=== PATIENT | female | born 1970 | race Caucasian/White ===

== ENCOUNTER 2018-08-29 07:58 | Observation (INO) ==
[2018-08-29 08:50] LABS: Basophils # 0.1 K/mcL (0.0-0.2); Basophils % 0.8 %; Eosinophils # 0.2 K/mcL (0.0-0.6); Eosinophils % 1.7 %; Hematocrit 30.4 % (35.3-44.9); Hemoglobin 9.4 g/dL (11.5-15.4); Immature Granulocytes % 0.6 % (0-4); Lymphocytes # 1.4 K/mcL (0.6-4.6); Lymphocytes % 15.3 %; Mean Corpuscular HGB Conc 30.9 g/dL (31.6-35.5); Mean Corpuscular Volume 90.5 fL (83.0-100.0); Mean Platelet Volume 9.9 fL (9.4-12.4); Monocytes # 0.7 K/mcL (0.0-1.3); Monocytes % 7.5 %; Platelet Count 443 K/mcL (140-400); Red Blood Count 3.36 M/mcL (3.82-4.97); Red Cell Distribution Width 16.1 % (11.5-14.5); Segmented Neutrophils % 74.1 %; White Blood Count 9.4 K/mcL (4.3-11.1)
[2018-08-29 08:59] LABS: INR 0.9; Prothrombin Time 10.5 Seconds (9.4-12.1)
[2018-08-29 09:00] LABS: Bilirubin,Urine Negative (Negative); Blood,Urine Large (Negative); Clarity,Urine Clear (Clear); Color,Urine Yellow (Yellow); Glucose,Urine (UA) Normal (Normal); Ketones,Urine Negative (Negative); Leukocyte Esterase,Urine Negative (Negative); Nitrite,Urine Negative (Negative); PH,Urine 5.5 pH Units (5.0-8.0); Protein,Urine Negative (Neg-Trace); Specific Gravity,Urine 1.025 (1.010-1.025); Urobilinogen,Urine Normal (Normal)
--- NOTE | 2018-08-29 09:00 | Emergency Department Note ---
Disposition Clinical Impression: Vaginal bleeding, Abnormal hemoglobin Disposition: Admitted As Inpatient Condition: Fair Referrals: NONE,PCP [Primary Care Provider] - Forms: ED Satisfaction Letter Time of Disposition: 13:04 Female Urogenital HPI - General Chief complaint: ED Vaginal Bleeding Stated complaint: Vaginal bleed/cramping 6 wks Time Seen by Provider: 08/29/18 08:13 Source: patient Limitations: no limitations Nursing Notes Reviewed: Yes Vital Signs Reviewed: Yes - History of Present Illness HPI Narrative: Bernice is a pleasant 47-year-old female. She presents to the emergency room with a chief complaint increasing vaginal bleeding and pain over the past week. She notes that she has had vaginal bleeding for 6 weeks. She was evaluated here on August 20 with similar complaints however states that since this time the pain has increased. She notes generalized pelvic pain without localization. She also notes that she feels increasingly weak both generalized weakness and noted weakness in her legs. She states that all of these symptoms or even bilaterally. She notes that she has a history of Crohn's. Her past abdominal surgical history includes a bowel resection in the late due to abscess as a result of complications from cholecystectomy. She denies fevers chest pain shortness of breath rash. She denies any recurrent abdominal pain feels like a Crohn's flare. She denies any current form of control and states that she is sexually active. The description of her past yearly cycles she describes someone in a monico menopausal state. She currently lives at the [facility]. Pt Subjective Complaint: vaginal bleeding Onset (ago): week(s) - Related Data Allergies Allergy/AdvReac Type Severity Reaction Status Date / Time morphine AdvReac Abdominal Verified 08/20/18 01:34 Pain All systems ED: reviewed and negative except as stated. Review of Systems: As Per HPI Past Medical History - Past Medical History Medical history: Reports: no medical history Psychiatric history: Reports: PTSD - Social History Smoking Status: Current every day smoker Smokeless Tobacco Status: No Alcohol use: Reports: none Drug use: Reports: none Physical Exam - General Limitations: no limitations General appearance: alert, in no apparent distress - Head Head exam: atraumatic - Eye Eye exam: Present: normal appearance, PERRL - ENT ENT exam: normal exam, normal oropharynx - Neck Neck exam: Present: normal inspection - Chest Chest inspection: Present: normal inspection, symmetric chest wall rise - Respiratory Respiratory exam: Present: normal lung sounds bilaterally. Absent: respiratory distress, wheezes - Cardiovascular Cardiovascular exam: Present: regular rate, normal rhythm - Abdominal Exam Abdominal exam: Present: tenderness, normal bowel sounds. Absent: distention, guarding, rebound (Suprapubic tenderness without guarding or rebound) - Female External Exam: Present: other (On initial pelvic exam, blood visible to external labia prior to insertion of speculum) Speculum Exam: Present: cervical OS closed, other (Blood pooling in vaginal vault. Os closed. No obvious tears or source of bleeding in cervix) Amniotic Fluid: Present: none - Expanded Lower Extremity Exam Ankle exam: Present: other ([place]/police tracing monitor present on lower left ankle) - Neurological Exam Neurological exam: Present: alert, oriented X3 Course Vital Signs Temperature 98.6 F 08/29/18 08:01 Pulse Rate 93 08/29/18 08:01 Respiratory Rate 18 08/29/18 08:01 Blood Pressure 116/85 08/29/18 08:01 O2 Sat by Pulse Oximetry 98 08/29/18 08:01 Temperature 98.6 F 08/29/18 08:01 Pulse Rate 79 08/29/18 10:53 Respiratory Rate 18 08/29/18 10:53 Blood Pressure 116/77 08/29/18 10:53 O2 Sat by Pulse Oximetry 96 08/29/18 10:53 Oxygen Delivery Oxygen Delivery Room Air Urogenital-Female - MDM Narrative Medical decision making narrative: Patient has significant social constraints that contribute to the care of this patient, including [facility]. Her ability for outpatient follow-up is questionable. She has a moderate drop of hemoglobin 11.2 on August 20 to 9.4 at today's visit. She was also symptomatic with this noting generalized weakness and weakness in her lower legs. She was given a liter of fluid and pain control in the emergency room. She was told from the very beginning of her stay that she would not be receiving fentanyl to go home and that the doses of fentanyl were not a regular part of her care or a regular part of routine visits to the emergency room. Dr. Chavez saw the patient with myself in the emergency room and agreed to admit the patient for management of her symptoms of vaginal bleeding. - Lab Data Result diagrams: 08/29/18 08:34 08/29/18 08:34 Lab Results 08/29/18 08/29/18 08/29/18 Range/Units 08:34 08:34 08:34 WBC 9.4 (4.3-11.1) K/mcL RBC 3.36 L (3.82-4.97) M/mcL Hgb 9.4 L (11.5-15.4) g/dL Hct 30.4 L (35.3-44.9) % MCV 90.5 (83.0-100.0) fL MCH 28.0 (28.0-33.3) pg MCHC 30.9 L (31.6-35.5) g/dL RDW 16.1 H (11.5-14.5) % Plt Count 443 H (140-400) K/mcL MPV 9.9 (9.4-12.4) fL Immature Gran % 0.6 (0-4) % Seg Neutrophils % 74.1 % Lymphocytes % 15.3 % Monocytes % 7.5 % Eosinophils % 1.7 % Basophils % 0.8 % Neutrophils # 7.0 (1.6-8.9) K/mcL Lymphocytes # 1.4 (0.6-4.6) K/mcL Monocytes # 0.7 (0.0-1.3) K/mcL Eosinophils # 0.2 (0.0-0.6) K/mcL Basophils # 0.1 (0.0-0.2) K/mcL PT (9.4-12.1) Seconds INR APTT (26.0-36.0) Seconds Sodium 140 (136-145) mEq/L Potassium 3.7 (3.5-5.1) mEq/L Chloride 108 H (98-107) mEq/L Carbon Dioxide 24 (23-29) mEq/L BUN 7 (6-20) mg/dL Creatinine 0.59 L (0.60-1.20) mg/dL Est GFR ( Amer) > 60 (> 60) Est GFR (Non-Af Amer) > 60 (> 60) BUN/Creatinine Ratio 12 (6-26) Glucose 100 (70-105) mg/dL Calculated Osmolality 288 (280-300) Calcium 8.9 (8.6-10.3) mg/dL Urine Color (Yellow) Urine Clarity (Clear) Urine pH (5.0-8.0) pH Units Ur Specific [place] (1.010-1.025) Urine Protein (Neg-Trace) mg/dL Urine Glucose (UA) (Normal) mg/dL Urine Ketones (Negative) mg/dL Urine Blood (Negative) Urine Nitrite (Negative) Urine Bilirubin (Negative) Urine Urobilinogen (Normal) mg/dL Ur Leukocyte Esterase (Negative) Urine Microscopic RBC (0-3) per hpf Urine Microscopic WBC (0-3) per hpf Ur Squamous Epith Cells (None-Few) per lpf Urine Bacteria (None-Few) per hpf Hyaline Casts (None-Few) per lpf Ur Culture Indicated? (NO) Urine Test (Negative) Anca species DNA (Not Detect) Chlam trachomat DNA PCR (Not Detect) Gardnerella DNA Probe (Not Detect) N.gonorrhoeae DNA (PCR) (Not Detect) Trichomonas DNA Probe (Not Detect) Blood Type O POSITIVE Antibody Screen NEGATIVE 08/29/18 08/29/18 08/29/18 Range/Units 08:34 08:45 08:45 WBC (4.3-11.1) K/mcL RBC (3.82-4.97) M/mcL Hgb (11.5-15.4) g/dL Hct (35.3-44.9) % MCV (83.0-100.0) fL MCH (28.0-33.3) pg MCHC (31.6-35.5) g/dL RDW (11.5-14.5) % Plt Count (140-400) K/mcL MPV (9.4-12.4) fL Immature Gran % (0-4) % Seg Neutrophils % % Lymphocytes % % Monocytes % % Eosinophils % % Basophils % % Neutrophils # (1.6-8.9) K/mcL Lymphocytes # (0.6-4.6) K/mcL Monocytes # (0.0-1.3) K/mcL Eosinophils # (0.0-0.6) K/mcL Basophils # (0.0-0.2) K/mcL PT 10.5 (9.4-12.1) Seconds INR 0.9 APTT 28.0 (26.0-36.0) Seconds Sodium (136-145) mEq/L Potassium (3.5-5.1) mEq/L Chloride (98-107) mEq/L Carbon Dioxide (23-29) mEq/L BUN (6-20) mg/dL Creatinine (0.60-1.20) mg/dL Est GFR ( Amer) (> 60) Est GFR (Non-Af Amer) (> 60) BUN/Creatinine Ratio (6-26) Glucose (70-105) mg/dL Calculated Osmolality (280-300) Calcium (8.6-10.3) mg/dL Urine Color Yellow (Yellow) Urine Clarity Clear (Clear) Urine pH 5.5 (5.0-8.0) pH Units Ur Specific [place] 1.025 (1.010-1.025) Urine Protein Negative (Neg-Trace) mg/dL Urine Glucose (UA) Normal (Normal) mg/dL Urine Ketones Negative (Negative) mg/dL Urine Blood Large H (Negative) Urine Nitrite Negative (Negative) Urine Bilirubin Negative (Negative) Urine Urobilinogen Normal (Normal) mg/dL Ur Leukocyte Esterase Negative (Negative) Urine Microscopic RBC TNTC H (0-3) per hpf Urine Microscopic WBC 0-3 (0-3) per hpf Ur Squamous Epith Cells Moderate H (None-Few) per lpf Urine Bacteria None Seen (None-Few) per hpf Hyaline Casts None Seen (None-Few) per lpf Ur Culture Indicated? NO (NO) Urine Test Negative (Negative) Anca species DNA (Not Detect) Chlam trachomat DNA PCR (Not Detect) Gardnerella DNA Probe (Not Detect) N.gonorrhoeae DNA (PCR) (Not Detect) Trichomonas DNA Probe (Not Detect) Blood Type Antibody Screen 08/29/18 08/29/18 Range/Units 10:04 10:04 WBC (4.3-11.1) K/mcL RBC (3.82-4.97) M/mcL Hgb (11.5-15.4) g/dL Hct (35.3-44.9) % MCV (83.0-100.0) fL MCH (28.0-33.3) pg MCHC (31.6-35.5) g/dL RDW (11.5-14.5) % Plt Count (140-400) K/mcL MPV (9.4-12.4) fL Immature Gran % (0-4) % Seg Neutrophils % % Lymphocytes % % Monocytes % % Eosinophils % % Basophils % % Neutrophils # (1.6-8.9) K/mcL Lymphocytes # (0.6-4.6) K/mcL Monocytes # (0.0-1.3) K/mcL Eosinophils # (0.0-0.6) K/mcL Basophils # (0.0-0.2) K/mcL PT (9.4-12.1) Seconds INR APTT (26.0-36.0) Seconds Sodium (136-145) mEq/L Potassium (3.5-5.1) mEq/L Chloride (98-107) mEq/L Carbon Dioxide (23-29) mEq/L BUN (6-20) mg/dL Creatinine (0.60-1.20) mg/dL Est GFR ( Amer) (> 60) Est GFR (Non-Af Amer) (> 60) BUN/Creatinine Ratio (6-26) Glucose (70-105) mg/dL Calculated Osmolality (280-300) Calcium (8.6-10.3) mg/dL Urine Color (Yellow) Urine Clarity (Clear) Urine pH (5.0-8.0) pH Units Ur Specific [place] (1.010-1.025) Urine Protein (Neg-Trace) mg/dL Urine Glucose (UA) (Normal) mg/dL Urine Ketones (Negative) mg/dL Urine Blood (Negative) Urine Nitrite (Negative) Urine Bilirubin (Negative) Urine Urobilinogen (Normal) mg/dL Ur Leukocyte Esterase (Negative) Urine Microscopic RBC (0-3) per hpf Urine Microscopic WBC (0-3) per hpf Ur Squamous Epith Cells (None-Few) per lpf Urine Bacteria (None-Few) per hpf Hyaline Casts (None-Few) per lpf Ur Culture Indicated? (NO) Urine Test (Negative) Anca species DNA Not Detected (Not Detect) Chlam trachomat DNA PCR NOT DETECTED (Not Detect) Gardnerella DNA Probe Not Detected (Not Detect) N.gonorrhoeae DNA (PCR) NOT DETECTED (Not Detect) Trichomonas DNA Probe Not Detected (Not Detect) Blood Type Antibody Screen
[2018-08-29 09:02] LABS: Bacteria,Urine None Seen per hpf (None-Few); Hyaline Casts,Urine None Seen per lpf (None-Few); RBC,Urine TNTC per hpf (0-3); Squamous Epithelial Cell,Urine Moderate per lpf (None-Few); WBC,Urine 0-3 per hpf (0-3)
[2018-08-29] MEDS ORDERED: 0.9 % Sodium Chloride 1,000 ML IVC ONE (09:04)
[2018-08-29] MEDS ORDERED: Ketorolac 15 MG/ML VIAL IVP ONE (09:04)
[2018-08-29 09:14] LABS: BUN/Creatinine Ratio 12 (6-26); Blood Urea Nitrogen 7 mg/dL (6-20); Calcium 8.9 mg/dL (8.6-10.3); Carbon Dioxide 24 mEq/L (23-29); Chloride 108 mEq/L (98-107); Glucose 100 mg/dL (70-105); Osmolality,Calculated 288 (280-300); Potassium 3.7 mEq/L (3.5-5.1); Sodium 140 mEq/L (136-145); eGFR For African Americans > 60 (> 60); eGFR For Non-African Americans > 60 (> 60)
[2018-08-29] MEDS ORDERED: *HR* FentaNYL (PF) 100 MCG/2 ML VIAL IVP ONE ×2 (10:27→12:58)
[2018-08-29 11:15] LABS: Gardnerella DNA Not Detected (Not Detect); Trichomonas DNA Not Detected (Not Detect)
[2018-08-29 11:16] LABS: Candida DNA Not Detected (Not Detect)
[2018-08-29 14:50] VITALS: BP 121/83
--- NOTE | 2018-08-29 15:53 | OB/GYN History & Physical ---
Date of Encounter: 08/29/18 Time of Encounter: 15:48 Assessment and Plan (1) Vaginal bleeding Status: Acute 47 y/o , heavy periods, Plan: VE showed a small amount of blood in the vault, After expelling the blood, I observed the cervix for several seconds and noted that she was not actively bleeding, I'll be admitting her for observation then starting her on Medroxyprogesterone 20mg TID x 7 days, she'll follow up with me outpt History of Present Illness HPI: Ms. Ramos is a 47 year old female who presents to the ER with vaginal bleeding x 6 weeks. She reports changing multiple pads per day during the bleeding. She reports dysmenorrhea. She presented to the ER for evaluation on 08/20 and today for AUB. Her Hgb was 11 then and it's 9.4 today. TVUS that was done today shows a small intramural fibroid with an endometrium measuring 1.7cm. She lives in a half way house and was recently in [facility]. 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 She does not report vaginal, urologic or GI symptoms. Past Med Surg Social Fam HX - Past Medical History Medical history: no medical history Psychiatric history: PTSD - Past Surgical History Additional surgical history: bowel resection x 2 - Social History Smoking Status: Current every day smoker Smokeless Tobacco Status: No Alcohol use: none Drug use: none Obstetrical History - Pregnancies : 4 Para: 4 Medications and Allergies Medroxyprogesterone Acetate [Provera] 20 mg PO TID #21 tablet 08/29/18 [Rx] Allergy/AdvReac Type Severity Reaction Status Date / Time morphine AdvReac Abdominal Verified 08/20/18 01:34 Pain Review of System OB All systems PM: reviewed and no additional remarkable complaints except as stated Exam - Vital Signs Vital signs: Initial Vital Signs Temp Pulse Resp BP Pulse Ox 98.6 F 93 18 116/85 98 08/29/18 08:01 08/29/18 08:01 08/29/18 08:01 08/29/18 08:01 08/29/18 08:01 - Constitutional Constitutional: no acute distress - HEENT HEENT: Normocephaly - Neck Neck exam: full ROM - Lungs Respiratory exam: CTAB - Cardiovascular Cardiovascular exam: RRR - Abdomen Abdomen: Present: non tender Results Result Diagrams: 08/29/18 08:34 08/29/18 08:34 Abnormal lab results RBC 3.36 M/mcL (3.82-4.97) L 08/29/18 08:34 Hgb 9.4 g/dL (11.5-15.4) L 08/29/18 08:34 Hct 30.4 % (35.3-44.9) L 08/29/18 08:34 MCHC 30.9 g/dL (31.6-35.5) L 08/29/18 08:34 RDW 16.1 % (11.5-14.5) H 08/29/18 08:34 Plt Count 443 K/mcL (140-400) H 08/29/18 08:34 Chloride 108 mEq/L (98-107) H 08/29/18 08:34 0.59 mg/dL (0.60-1.20) L 08/29/18 08:34 Large (Negative) H 08/29/18 08:45 TNTC per hpf (0-3) H 08/29/18 08:45 Ur Squamous Epith Cells Moderate per lpf (None-Few) H 08/29/18 08:45 All other labs normal.
[2018-08-29] MEDS ORDERED: Ibuprofen 600 MG TABLET PO PRN (16:12)
[2018-08-29] MEDS ORDERED: Nicotine 21 MG PATCH.TD24 TD SCH (16:30)
== END 2018-08-29 21:18 | disposition home or self-care (01) ==
LOC: EMEROOARM 07:58 → 1NENUOBS 07:58
PROVIDERS: ADMIT Student in an Organized Health Care Education/Training Program; ATTEND Student in an Organized Health Care Education/Training Program